=== PATIENT | male | born 1990 | race Caucasian/White ===

== ENCOUNTER 2020-01-25 08:24 | Inpatient (IN) | payer BC ==
[~2020-01-25] VITALS: Ht 175.3 cm; Wt 108.9 kg
[2020-01-25 08:39] VITALS: Ht 175.3 cm; Wt 108.9 kg
[2020-01-25 09:29] LABS: CALCIUM 8.3 mg/dL (8.5-10.1); CHLORIDE SERUM 100 mmol/L (98-107); CREATININE SERUM 1.1 mg/dL (0.7-1.3); GFR1 > 60 mL/min; GLUCOSE SERUM 89 mg/dL (74-106); SODIUM SERUM 135 mmol/L (136-145)
[2020-01-25 09:33] LABS: ALBUMIN 3.4 g/dL (3.4-5.0); ALKALINE PHOSPHATASE 99 U/L (46-116); ALT/SGPT 60 U/L (16-63); AMYLASE 53 U/L (25-115); AST/SGOT 27 U/L (15-37); BILIRUBIN TOTAL 3.62 mg/dL (0.20-1.00); LIPASE 60 IU/L (73-393); TOTAL PROTEIN, SERUM 7.4 g/dL (6.4-8.2)
--- NOTE | 2020-01-25 09:35 | NUR ---
PT TO CT SCAN VIA WHEELCHAIR
--- NOTE | 2020-01-25 09:48 | NUR ---
RETURNED FROM CT SCAN
[2020-01-25 10:40] LABS: BASOPHIL % 0.2 % (0-2); PLATELET COUNT 232 x10^3mcL (130-400); RED CELL DISTRIBUTION WIDTH 12.9 % (11.5-14.5)
--- NOTE | 2020-01-25 10:40 | NUR ---
PT MEDICATED FOR PAIN
--- NOTE | 2020-01-25 12:05 | NUR ---
ULTRASOUND AT BEDSIDE
[2020-01-25 12:07] LABS: UA SPECIFIC GRAVITY 1.015 (1.005-1.035); microscopic required? YES; urine erythrocyte 2+ (NEGATIVE)
[2020-01-25] MEDS ORDERED: EXCEDRIN MIGRA1 EAC1 PO (14:01)
[2020-01-25] MEDS ORDERED: IBU400 M2 PO (14:01)
[2020-01-25] MEDS ORDERED: IMITREX (14:01)
[2020-01-25 14:07] LABS: T3 TOTAL 0.97 ng/mL
[2020-01-25 14:22] LABS: FREE T4 1.32 ng/dL (0.76-1.46); FREE THYROXINE INDEX 2.9 ug/dL (1.4-4.5); T4(THYROXINE) 8.1 ug/dL (4.7-13.3)
[2020-01-25 14:33] LABS: MAGNESIUM 1.9 mg/dL (1.8-2.4); PHOSPHOROUS 1.9 mg/dL (2.5-4.9)
--- NOTE | 2020-01-25 14:47 | NUR ---
RECEIVED PT VIA GURNEY FROM E/D, ACCOMPANIED BY TRANSPORTER. PT A/A/O X 4, CALM, COOPERATIVE TO CARE. HR 113, DENIES CHEST PAIN OR DISCOMFORT AT THIS TIME. NO ACUTE RESPIRATORY DISTRESS NOTED. ABD SOFT, ROUND, NON-TENDER, NORMOACTIVE BOWEL SOUNDS X 4 QUADS, LAST BM 01/24/2020, DIARRHEA, DENIES PAIN OR DISCOMFORT AT THIS TIME. UA +LEUKS, NITRITES; C/O DARK ORANGE URINE W/ STRONG SMELL; DENIES DYSURIA. IV SITE RAC 20G, CDI. ORIENTED PT TO ROOM, BED CONTROLS, CALL LIGHT SYSTEM. SIDE RAILS UP X 2, BED IN LOW POSITION. WILL ENDORSE TO CHAVEZ LUCIA.
--- NOTE | 2020-01-25 14:57 | NUR ---
ARRIVED FROM ED AT 1445. AAO TIMES 4. MED SURG PATIENT. IV SITE RAC PATENT, CDI. COOPERATIVE AND PLEASANT.
[2020-01-25 15:27] VITALS: BP 135/80
--- NOTE | 2020-01-25 16:45 | NUR ---
SEBLE TRIPLE VALVE MECHANIC AWARE OF PATIENT'S TEMP OF 101.7, THE BLOOD CULTURES WERE DONE IN THE ER AND ROCEPHIN WAS GIVEN IN THE ER ALSO, SHE STATES, NO FURTHER ANTIBIOTICS. I GAVE THE TYLENOL 650 MG PO AT 1655.
[2020-01-25 16:58] VITALS: BP 123/74
--- NOTE | 2020-01-25 17:39 | NUR ---
AAO TIMES 4. MED SURG PATIENT. C/O HEADACHE, AND TEMP WAS 101.7, GAVE [id number] PO AT 1655. IV SITE CDI. COOPERATIVE.
--- NOTE | 2020-01-25 18:16 | NUR ---
C/O HEADACHE, I RECHECKED HIS TEMP, AND IT IS 101.3. I REMOVED HIS BLANKETS AND TURNED ON THE AIR CONDITIONER, AND GAVE HIM RYLAN PO AT 1813.
[2020-01-25 21:18] VITALS: BP 130/71
--- NOTE | 2020-01-25 23:20 | NUR ---
Spoke to MD about antibiotic supposedly not given during day shift as per pt. and pt. family member. Pt. requesting for a dose because as per pt. and pt. family, questioning why they should pay for an abx if it was never given. Informed MD of situation, MD will explain to pt. about how it was given in ER and cont. to monitor.
--- NOTE | 2020-01-25 23:53 | NUR ---
Pt. c/o of pain in his lower abd and lower back, starting up again. Will give [place] as ordered and continue to monitor.
--- NOTE | 2020-01-26 00:36 | NUR ---
Pt. has a temp of 100.8 at this time, will admin tylenol as ordered adn cont. to monitor.
--- NOTE | 2020-01-26 00:39 | NUR ---
@ 2000 A/A/O X4.DENIES ANY DISCOMFORT @ THIS TIME.DENIES SOB.IVF NS @ 50 ML/HR INFUSING WELL.AFEBRILE.O2 SAT ON RA 97%. INSTRUCTED TO USE CALL LIGHT NEEDED;WITHIN REACH.
--- NOTE | 2020-01-26 00:39 | NUR ---
Spoke to Dr. Phillips at this time regarding pt. request for morphine to help control the pain. As per Dr. Phillips, fwd message to Dr. Hernandez, will cont. to monitor and await medication order.
--- NOTE | 2020-01-26 00:48 | NUR ---
@ 2200 DUE MED ADM.
--- NOTE | 2020-01-26 00:52 | NUR ---
Called pharmacy at this time to verify medication, will cont. to monitor.
--- NOTE | 2020-01-26 01:26 | NUR ---
Pt. c/o of pain in his lower abd area, will admin toradol as ordered
--- NOTE | 2020-01-26 03:53 | NUR ---
Reported to MD phos level, as per MD. will take a look at it and put in orders for as indicated. Will cont. to monitor.
[2020-01-26 05:06] VITALS: BP 128/70
--- NOTE | 2020-01-26 05:16 | NUR ---
Pt. ntoed to be resting throughout shift since change at midnight. Pt. given toradol, able resting comfortably s/p medical device assembler. Pt. noted to be stable, no c/o chest pain, sob, or s/o acute dsitress. Needs have been anticipated and met, will cont. to monitor pt at this time and endorse to next shift RN.
[2020-01-26 07:21] LABS: CALCIUM 8.5 mg/dL (8.5-10.1); CARBON DIOXIDE 25.1 mmol/L (21-32); CHLORIDE SERUM 100 mmol/L (98-107); GFR1 > 60 mL/min; GLUCOSE SERUM 103 mg/dL (74-106); POTASSIUM SERUM 4.6 mmol/L (3.5-5.1); SODIUM SERUM 134 mmol/L (136-145)
[2020-01-26 07:24] LABS: BASOPHIL % 0.2 % (0-2); PLATELET COUNT 208 x10^3mcL (130-400); RED CELL DISTRIBUTION WIDTH 13.6 % (11.5-14.5)
--- NOTE | 2020-01-26 07:46 | NUR ---
RECEIVED IN NO DISTRESS, AWAKE AND ALERT. NO C/O PAIN OR DISCOMFORT. VS WNL. WILL CONTINUE WITH PLAN OF CARE.
--- NOTE | 2020-01-26 08:29 | NUR ---
RECEIVED IN NO DISTRESS, AWAKE AND ALERT. VS WNL.IVF INFUSING WELL AND SITE CLEAR. PT C/O HEADACAHE. TYLENOL GIVEN. WILL CONTINUE WITH PLAN OF CARE.
[2020-01-26 09:14] VITALS: BP 116/50
[2020-01-26 12:23] VITALS: BP 123/77
--- NOTE | 2020-01-26 16:32 | NUR ---
PT C/O TESTICULAR PAIN 03/14, MEDICATED WITH TORADOL IVP.
--- NOTE | 2020-01-26 16:45 | NUR ---
PT C/O JANIE HE FEELS HOT AND REPORTED FEELING LIKE HE HAS FEVER. TEMPORAL TEMP TAKEN AND IS 98.2. PT STATED TEMPORAL DOES NOT WORK FOR HIM AND HE WOULD LIKE HIS TEMP TAKEN ORALLY. ORAL TEMP ALSO READ 98.2. PT STATED HE WANT TO LEAVE AND GO TO ANOTHER HOSPITAL BECAUSE HE FEELS LIKE WE ARE NOT DOING ANYTHING RIGHT. WILL NOTIFY .
[2020-01-26 16:59] VITALS: BP 135/70
--- NOTE | 2020-01-26 17:03 | NUR ---
PT SIGNED AMA AND LEFT. HL REMOVED PRIOR TO LEAVE. PT ALERT AND ORIENTED, UNDERSTAND THE RISK OF LEAVING AMA. SLATE TRIMMER COLLIER MADE AWARE.
== END 2020-01-26 17:00 | disposition left against medical advice (07) | DRG 690 ==
LOC: ED 08:24 → MU 13:18
PROVIDERS: Emergency Medicine; ADMIT Internal Medicine; ATTEND Internal Medicine
DX: N12 Tubulo-interstitial nephritis, not specified as acute or chronic (principal); G43.909 Migraine, unspecified, not intractable, without status migrainosus; B96.20 Unspecified Escherichia coli [E. coli] as the cause of diseases classified elsewhere; Z53.29 Procedure and treatment not carried out because of patient's decision for other reasons; Z90.49 Acquired absence of other specified parts of digestive tract; Z79.899 Other long term (current) drug therapy
CPT/HCPCS: 84439; G0378; J0696; J1885; J2270; J2405; J3490; J7030; Q0092